=== PATIENT | male | born 1995 | race Caucasian/White ===

== ENCOUNTER 2023-08-17 18:02 | Emergency (ER) | payer SELFPAY ==
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
[2023-08-17 18:11] VITALS: BP 114/77; PULSE 112; O2SAT 99; BMI 20.2
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
[2023-08-17] MEDS: iohexol 350 mg/mL 500 mL Btl (per mL) IV (18:15)
[2023-08-17 18:31] VITALS: TEMP 37
[2023-08-17 18:37] LABS: Basophils % 0.2 %; Eosinophils % 0.9 %; Hematocrit 24.5 % (37-53); Lymphocytes # 0.6 10^3/uL (0.8-4.8); Lymphocytes % 13.1 %; Mean Corpuscular HGB Conc 30.2 g/dL (30-55); Mean Corpuscular Hemoglobin 31.2 pg (27-33); Mean Corpuscular Volume 103.4 fl (82-101); Mean Platelet Volume 7.9 fL (7.4-10.4); Monocytes # 0.4 10^3/uL (0.2-0.9); Monocytes % 8.7 %; Neutrophils # 3.44 10^3/uL (1.8-7.7); Neutrophils % 76.4 %; Nucleated Red Blood Cells % 0 %; Platelet Count 275 10^3/cmm (157-399); Red Blood Count 2.37 10^6/uL (3.85-5.65); Red Cell Distribution Width 15.7 % (12.1-15.1)
[2023-08-17] MEDS: tetanus-dipt-pertussis 0.5 mL SDV IM (18:50)
[2023-08-17 19:06] LABS: Alanine Aminotransferase 12 U/L (0-41); Albumin Level 1.9 g/dL (3.5-5.2); Alkaline Phosphatase 83 U/L (40-130); Anion Gap 10.4 (5-19); Aspartate Amino Transferase 12 U/L (0-40); Blood Urea Nitrogen 16 mg/dL (6-20); Calcium 7.5 mg/dL (8.5-10.5); Carbon Dioxide 23 mmol/L (22-29); Chloride 102 mmol/L (98-107); Creatinine Clr Calc Pharmacy 186.9951; Globulin 2.8 g/dL (1.3-4.6); Glomerular Filtration Rate 161.6 mL/min (90-130); Glucose 107 mg/dL (65-115); Osmolality Calculated 276 mOsm/kg (285-295); Potassium 3.4 mmol/L (3.5-5.1); Sodium 132 mmol/L (136-145); Total Bilirubin 0.2 mg/dL (0.15-1.2); Total Protein 4.7 g/dL (6.6-8.7)
[2023-08-17 19:07] LABS: Acetaminophen < 5.0 ug/mL (10-30); Alcohol Level < 10 mg/dL (0-10); Lactic Sepsis W/Reflex 1.4 mmol/L (0.5-2.2); Salicylate < 0.3 mg/dL (3-10)
[2023-08-17 19:08] LABS: Slide Review Slide Review Perform
[2023-08-17] MEDS: sodium chloride 0.9% 1,000 ML 999 ML IV (19:15)
[2023-08-17] MEDS: ceFAZolin 2,000 mg SDV 2000 MG IVP (19:15)
[2023-08-17 19:19] VITALS: BP 106/62; PULSE 105; RESP 20; O2SAT 97
[2023-08-17] MEDS: HYDROmorphone 1 mg/mL INJ 1 mL IVP (20:17)
[2023-08-17 20:46] VITALS: BP 106/62; PULSE 105; RESP 20; TEMP 37; O2SAT 97
== END 2023-08-17 20:47 | disposition short-term general hospital (02) ==
PROVIDERS: Emergency Provider Emergency Medicine
DX: S21.111A Laceration without foreign body of right front wall of thorax without penetration into thoracic cavity, initial encounter (principal); J93.9 Pneumothorax, unspecified; Z23 Encounter for immunization
CPT/HCPCS: 71260; 80053; 80307; 83605; 85025; 86850; 86900; 90471; 90715; 96374; 96375; 99285; J0690; J1170; J7030; Q9967